=== PATIENT | male | born 1990 | race Caucasian/White ===

== ENCOUNTER 2017-02-16 08:17 | Emergency (ER) | payer SELFPAY ==
[2017-02-16 08:21] VITALS: BMI 23.7
[2017-02-16] MEDS ORDERED: LOPRESSOR TAB 50 MG PO ONE (08:50)
[2017-02-16] MEDS ORDERED: ZESTRIL TAB 20 MG PO ONE (08:50)
[2017-02-16] MEDS ORDERED: LOPRESSOR TAB 50 MG ONE (08:51)
--- NOTE | 2017-02-16 09:04 | DR.GENAD ---
HPI - PCP Primary Care Physician: [place] - HPI Comment HPI Comment: LEFT ANKLE PAIN AND SWELLING TIMES ONE WEEK. WORSE TODAY. NO HISTORY OF TRAUMA. PATIENT SAID ANKLE POPS WHEN HE WALKS. - Complaint/Symptoms Chief Complaint:: PATIENT STATE THAT HE IS HAVING LEFT ANKLE PAIN. THIS ALL STARTED LAST WEEK BUT HAS WORSENED SINCE THEN. - Nurses notes reviewed Nurses Notes Review: Yes - Source History Provided: Patient - Mode of Arrival Mode of Arrival: Ambulatory - Timing Onset of Chief Complaint: 02/09/17 Came on: Suddenly - Duration Duration: Constant Duration: Days - Severity Severity: Moderate PMH - PMH Past Medical History: Yes Past Medical History: Hypertension Past Surgical History: Yes Surgical History: Appendectomy - Family History History of Family Medical Conditions: Yes Family Medical History: Diabetes Mellitus, Cancer, [place], Coronary Artery Disease, Heart Failure, Sudden Cardiac , Hypertension - Social History Does patient currently use any type of tobacco product: Yes Have you used tobacco products in the last 12 months: Yes Type of Tobacco Use: Cigarettes Does any household member use tobacco: No Alcohol Use: None Do you use any recreational Drugs:: No Lives With: Family Lives Where: Home - infectious screening In the last 2 months have you had wt loss of >10#?: NO Have you had fever, night sweats or hemotysis?: No Have you traveled outside the country in the last 6 months?: No Isolation: Standard ROS - Review of Systems Constitutional: No Symptoms Reported Eyes: No Symptoms Reported ENTM: No Symptoms Reported Respiratoy: No Symptoms Reported Cardiovascular: No Symptoms Reported Gastrointestinal/Abdominal: No Symptoms Reported Genitourinary: No Symptoms Reported Neurological: No Symptoms Reported Musculoskeletal: Left, Ankle (PAIN AND SWELLING LT ANKLE.) Integumentary: No Symptoms Reported Hematologic/Lymphatic: No Symptoms Reported Endocrine: No Symptoms Reported All Other Systems: Reviewed and Negative PE - Vital Signs Vitals: Temperature 98.3 F Pulse Rate 110 Respiratory Rate 20 Blood Pressure [Right Arm] 190/134 Blood Pressure 204/131 O2 Sat by Pulse Oximetry 99 - General Limitations: No Limitations General Appearance: Alert - Head Head Exam: Normal Inspection - Eyes Eye exam: Normal Appearance - ENT ENT Exam: Normal External Ear Exam - Neck Neck Exam: Trachea Midline - Chest Chest Inspection: Symmetric Chest Wall Rise - Respiratory Respiratory Exam: Normal Lung Sounds Bilat Respiratory Exam: Bilateral Clear to Auscultation - Cardiovascular Cardiovascular Exam: Regular Rate, Normal Rhythm, Normal Heart Sounds - Abdominal Exam Abdominal Exam: Normal Bowel Sounds, Soft. negative: Tenderness - Extremities Extremities Exam: Tenderness (LEFT ANKLE PAIN AND SWELLING.), Joint Swelling ( LEFT ANKLE) - Back Back Exam: Normal Inspection - Neurologic Neurological Exam: Alert, Oriented X3 MDM - Differential Diagnosis Differential Diagnosis: LEFT ANKLE SPRAIN, FRACTURE AND STRAIN. Course - Treatment Treatment: SEE ORDERS. PATIENT MORNING HTN MED GIVEN IN ED. BP DECREASING. - Education/Counseling Education/Counseling: Patient, Education Educated On: Diagnosis, Needs for Follow Up ROR - XRAY XRAY Interpreted by: Radiologist XRAY Findings: REPORT DISCUSS WITH PATIENT. - Diagnosis Discharge Problem: Left ankle sprain Qualifiers: Encounter type: initial encounter Involved ligament of ankle: unspecified ligament Qualified Code(s): S93.402A - Sprain of unspecified ligament of left ankle, initial encounter Hypertension Qualifiers: Hypertension type: essential hypertension Qualified Code(s): I10 - Essential ( primary) hypertension - Discharge Plan Disposition: 01 HOME, SELF-CARE Condition: Stable Prescriptions: Ibuprofen [MOTRIN TAB 600 MG *] 600 mg PO TID PRN #20 tab PRN Reason: Pain/Inflammation - Follow ups/Referrals Follow ups/Referrals: NFD,None [Primary Care Provider] - 3 days - Instructions Instructions: Acute Ankle Sprain With Phase I Rehab-SportsMed Additional Instructions: RETURN TO ED IF WORSE.
--- NOTE | 2017-02-16 09:17 | RAD ---
HISTORY: Ankle pain. 3 views of the left ankle joint. No comparisons. Findings: No osteochondral lesions are appreciated. No acute cortical disruption or dislocation can be identif ied. The ankle mortise remains well aligned. There is moderate lateral malleolar soft tissue swelli ng, suggesting a lateral ankle ligamentous injury and/or ankle sprain. The visualized portions of t he talus and calcaneus are unremarkable. No other bony or soft tissue abnormalities are seen. No rad iopaque foreign bodies are seen in the visualized soft tissues, either. IMPRESSION: 1. Negative exam for acute fracture or dislocation. 2. Moderate lateral malleolar soft tissue swelling, which can be seen with a lateral ankle ligament ous injury and/or ankle sprain. Small ankle joint effusion noted. Reported By:
[2017-02-16 10:09] VITALS: BP 190/134
== END 2017-02-16 10:13 | disposition home or self-care (01) ==
LOC: ER 08:32
DX: S93.402A Sprain of unspecified ligament of left ankle, initial encounter (principal); I10 Essential (primary) hypertension; Y33.XXXA Other specified events, undetermined intent, initial encounter; Y92.9 Unspecified place or not applicable
CPT/HCPCS: 73610; 99282; 99283

== ENCOUNTER 2017-11-21 19:17 | Emergency (ER) | payer SELFPAY ==
[2017-11-21 19:23] VITALS: BMI 23.7
[2017-11-21 19:24] VITALS: BP 226/168
[2017-11-21] MEDS ORDERED: CATAPRES TAB 0.2 MG PO ONE (20:08)
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
[2017-11-21] MEDS ORDERED: TORADOL 60 MG VIAL IM ONE (20:51)
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
[2017-11-21] MEDS ORDERED: TORADOL 60 MG VIAL ONE (21:43)
[2017-11-21] MEDS ORDERED: CATAPRES TAB 0.2 MG ONE (21:43)
== END 2017-11-21 21:58 | disposition left against medical advice (07) ==
LOC: ER 19:17
DX: S13.8XXA Sprain of joints and ligaments of other parts of neck, initial encounter (principal); X58.XXXA Exposure to other specified factors, initial encounter
CPT/HCPCS: 72125; 96372; 99282; 99283; J1885